=== PATIENT | male | born 1950 | race Caucasian/White ===

== ENCOUNTER 2018-08-15 18:51 | Inpatient (IN) | payer MEDICARE, OTHER ==
[~2018-08-15] VITALS: Ht 177.8 cm; Wt 73.5 kg
[2018-08-15] MEDS ORDERED: PACERONE200 MG PO (18:58)
[2018-08-15] MEDS ORDERED: BAYER CHEWABLE81 MG PO (18:58)
[2018-08-15] MEDS ORDERED: COREG12.5 MG PO (18:58)
[2018-08-15] MEDS ORDERED: ELIQUIS5 MG PO (18:58)
[2018-08-15] MEDS ORDERED: CRESTOR20 MG PO (18:59)
[2018-08-15] MEDS ORDERED: DEMADEX10 MG PO (19:00)
[2018-08-15] MEDS ORDERED: [UNRECOGNIZED DRUG - OTHER] (19:00)
[2018-08-15] MEDS ORDERED: MIRALAX17 GM PO (19:01)
[2018-08-15] MEDS ORDERED: FIORICET/ESGIC1 TAB PO (19:01)
[2018-08-15] MEDS ORDERED: PERCOCET 10-321 EAC1 PO (19:02)
[2018-08-15] MEDS ORDERED: KLOR-CON 1010 MEQ PO (19:02)
[2018-08-15] MEDS ORDERED: ALBUTEROL SULF8.5 GM INH (19:03)
[2018-08-15 19:41] LABS: BASOPHILS 0.4 % (0-2); EOSINOPHILS 3.2 % (0-7); HEMATOCRIT 32.8 % (42.0-54.0); IMMATURE GRANULOCYTES 0.3 % (0-5); MCH 31.4 pg (26.0-34.0); MCHC 33.5 g/dL (31.0-37.0); MCV 93.7 fL (80.0-100.0); MEAN PLATELET VOLUME 8.5 fL (7.4-10.4); MONOCYTES 6.2 % (2-11); NEUTROPHILS 78.9 % (40-80); WBC 7.7 10x3/uL (4.8-10.8)
[2018-08-15 19:42] LABS: PLATELET COUNT 510 10x3/uL (130-400)
[2018-08-15 19:53] LABS: ALBUMIN 2.9 g/dL (3.4-5.0); ALKALINE PHOSPHATASE 94 U/L (46-116); ALT (SGPT) 25 U/L (10-68); BILIRUBIN - TOTAL 0.34 mg/dL (0.2-1.3); CALC OSMOLALITY 281 mosm/kg (275-300); CALCIUM 8.6 mg/dL (8.5-10.1); CARBON DIOXIDE 28.2 mmol/L (21.0-32.0); CHLORIDE - SERUM 102 mmol/L (98-107); GLUCOSE 101 mg/dL (74-106); POTASSIUM - SERUM 3.6 mmol/L (3.5-5.1); PROTEIN - SERUM 6.6 g/dL (6.4-8.2); SODIUM 141 mmol/L (136-145); UREA NITROGEN 15 mg/dL (7-18); eGFR NON AFRICAN AMERICAN 80 mL/min (90-120)
[2018-08-15 20:08] LABS: CREATINE KINASE 76 UL (21-232)
[2018-08-15 20:15] LABS: TROPONIN-I 0.263 ng/mL (0.000-0.060)
[2018-08-15 20:54] VITALS: BP 147/90
--- NOTE | 2018-08-15 21:41 | NUR ---
RECIEVED REPORT FROM [place] AT 2119. ARRIVED TO FLOOR AT 2129. TRANSFERED SELF TO BED. ALERT AND ORIENTED X4. STATED HE HAD A CABG 2 WEEKS AGO AT [facility] AND THEY DON'T HAVE ANY BEDS TONIGHT. INCISION TO MIDCHEST SCABBED OVER. NO REDNESS OR DRAINAGE TO SITE. IV TO LEFT AC WITH HEPRON RUNNING AT 26HR. DENIES ANY PAIN AT THIS TIME.
[2018-08-15 23:03] VITALS: BP 137/82; BMI 23.2
[2018-08-16 01:30] LABS: CKMB 1.6 U/L (0.0-3.6); CREATINE KINASE 86 UL (21-232)
[2018-08-16 01:33] LABS: TROPONIN-I 0.229 ng/mL (0.000-0.060)
[2018-08-16 06:25] LABS: CKMB 1.4 U/L (0.0-3.6); CREATINE KINASE 65 UL (21-232)
[2018-08-16 06:28] LABS: TROPONIN-I 0.227 ng/mL (0.000-0.060)
--- NOTE | 2018-08-16 07:15 | NUR ---
RECEIVED PT IN BED AAOX4 RESP UNLABORED DENIES ANY DISCOMFORT OR NEEDS AT THIS TIME
[2018-08-16 07:40] VITALS: BP 129/80
[2018-08-16] MEDS ORDERED: NITROQUICK0.4 MG SL (08:13)
[2018-08-16 08:24] VITALS: BP 105/69
[2018-08-16 11:14] VITALS: BP 93/65
--- NOTE | 2018-08-16 12:15 | NUR ---
SPOKE WITH DR FERNANDEZ REPORTED PT HEART RHYTHM GOING FROM AFIB TO SINUR RATE 70-140 NEW ORDERS RECEIVED
--- NOTE | 2018-08-16 13:00 | NUR ---
PT SINUS RHYTHM ON MONITOR RATE 65
[2018-08-16 13:26] VITALS: Ht 177.8 cm; Wt 73.5 kg
[2018-08-16 15:20] VITALS: BP 95/56
--- NOTE | 2018-08-16 19:32 | NUR ---
RECIEVED UP IN BED WITH SPOUSE AT BEDSIDE. ALERT AND ORIENTED X4. UP AD [place]. IV TO LEFT AC SL.. TELEMETRY IN PLACE. DENIES ANY PAIN OR NEEDS.
[2018-08-16 20:00] VITALS: BP 88/53
[2018-08-17] VITALS: BP 99/54
[2018-08-17 04:00] VITALS: BP 102/68
[2018-08-17] MEDS ORDERED: COREG12.5 MG PO (07:10)
--- NOTE | 2018-08-17 07:55 | NUR ---
PT REQUESTED TO HAVE AM MEDS EARLY, SO THAT HE DOES NOT GO BACK INTO AFIB. AM MEDS GIVEN AT THIS TIME. PT DENIES ANY NEEDS AT THIS TIME. A/O X4, RESP EVEN AND NONLABORED ON RA. LT AC SL. FAMILY AT BEDSIDE, CALL LIGHT IN REACH, NAD NOTED. WILL CONTINUE PLAN OF CARE.
[2018-08-17 08:06] VITALS: BP 117/70
--- NOTE | 2018-08-17 09:15 | NUR ---
PROVIDED VERBAL AND WRITTEN DISCHARGE TEACHING TO PT AND SPOUSE, BOTH VERBALIZED UNDERSTANDING REGARDING TEACHING. D/C LT AC IV WITH CATHETER TIP INTACT. MONITOR REMOVED AND TAKEN TO TIN FLIPPER [facility]. PT WILL NOTIFY THIS NURSE WHEN READY FOR WHEELCHAIR.
--- NOTE | 2018-08-17 09:55 | NUR ---
PT LEFT UNIT VIA WHEELCHAIR, WTIH ALL BELONGINS, ACCOMPANIED BY FAMILY,NAD NOTED.
--- NOTE | 2018-08-18 08:45 | MORECARE ---
CASE MANAGEMENT DISCHARGE SUMMARY PATIENT: JUAN SCHMITZ UNIT: [id number] ADM DATE: 08/16/18 AGE: 67 : 54 SEX: M ROOM/BED: D.2119 AUTHOR: BERTA WOO PHYSICIAN: REFERRING PHYSICIAN: SAMI FERNANDEZ M.D. DATE OF SERVICE: 08/18/18 Discharge Plan Patient Name: JUAN SCHMITZ [facility] [facility] 1950 Planned Disposition: Home Anticipated Discharge Date: 08/17/18 Discharge Date: 08/17/2018 Expected LOS: 1 Initial Reviewer: [id number] Initial Review Date: 08/18/2018 Generated: 08/18/18 9:44 am Coverage Notice Reviewer: [email or web address] Jonny Andersen Notice Issued Date-Time: 08/16/2018 16:23 Notice Type: Medicare Outpatient Observation Notice Notice Delivered To: Patient Relationship to Patient: Physician Vice President Name: Delivery Method: HAND - Hand Delivered Rachael Days: Prior Verbal Notification: Recipient Understood Notice: Yes Recipient Signature: Yes Med Rec Note Co-signed by Attending: Coverage Notice Comment: Patient Name: JUAN SCHMITZ Page [id number] at 0845 All edits/amendments must be made on the electronic document DICTATION DATE: 08/18/18843 RAILROAD MECHANIC: ELGIN 08/18/1844 RPT#: [id number] DC DATE:08/17/18 STATUS: DIS IN [facility] [address] [place] [address] END OF REPORT
== END 2018-08-17 09:55 | disposition home or self-care (01) | DRG 310 ==
LOC: D.ER 18:51 → OBSVTIME 20:54 → D.M2 20:54
PROVIDERS: Emergency Medicine; ADMIT Internal Medicine Cardiovascular Disease
DX: I48.0 Paroxysmal atrial fibrillation (principal); I25.10 Atherosclerotic heart disease of native coronary artery without angina pectoris; I10 Essential (primary) hypertension